=== PATIENT | female | born 1990 | race Caucasian/White ===

== ENCOUNTER 2018-04-02 12:44 | Emergency (ER) | payer OTHER ==
[~2018-04-02] VITALS: Ht 160 cm; Wt 91.2 kg
[2018-04-02] MEDS ORDERED: NOHOMEMEDICATIONS (13:07)
[2018-04-02 17:19] VITALS: BP 131/77
== END 2018-04-02 17:19 | disposition short-term general hospital (02) ==
LOC: ER 12:44
DX: S02.32XA Fracture of orbital floor, left side, initial encounter for closed fracture (principal); W51.XXXA Accidental striking against or bumped into by another person, initial encounter; Y93.89 Activity, other specified; Y92.89 Other specified places as the place of occurrence of the external cause; Y99.8 Other external cause status